=== PATIENT | female | born 1975 | race Caucasian/White ===

== ENCOUNTER 2018-07-31 15:07 | Outpatient (CLI) | payer BC ==
--- NOTE | 2018-07-31 16:02 | RAD ---
RIGHT ANKLE: 07/31/18 Three views. HISTORY: Fall with injury. There is swelling seen laterally. No evidence of fracture. Small enthesophyte from the plantar calcan eus. Small calcific density seen in the soft tissues posterior to the tibiotalar joint one the latera l view. This may represent a density seen overlying the medial joint space on the frontal view. IMPRESSION: No acute fracture identified. Prominent soft tissue swelling laterally. POS: [facility]
--- NOTE | 2018-07-31 16:05 | RAD ---
RIGHT FOOT: 07/31/18 Three views. HISTORY: Fall with injury. The tarsals appear intact. Small enthesophyte from the plantar calcaneus. The tarsometatarsal alignme nt is normal. Mild degenerative changes noted in the first tarsometatarsal joint. There is articular sclerosis and mild hypertrophic change at this joint. The metatarsals and phalanges appear intact. The MTP and IP joints appear unremarkable. IMPRESSION: No fracture or acute abnormality. Chronic changes as described. POS: [facility]
== END 2018-07-31 15:08 | disposition home or self-care (01) ==
LOC: BICRAD 15:07
PROVIDERS: ATTEND Family Medicine
DX: S93.421A Sprain of deltoid ligament of right ankle, initial encounter (principal); M79.89 Other specified soft tissue disorders